=== PATIENT | female | born 1985 | race Caucasian/White ===

== ENCOUNTER 2024-02-13 20:10 | Emergency (ER) | payer OTHER, SELFPAY ==
--- NOTE | ~2024-02-13 | XR_ITS ---
EXAMINATION: XR CHEST CLINICAL INFORMATION: Fever. COMPARISON: None available. TECHNIQUE: Frontal view of the chest was obtained. FINDINGS: Normal appearance of the cardiomediastinal silhouette. Diffuse interstitial thickening. No dense consolidation. No pleural effusion or pneumothorax. No acute osseous findings. XR/XR chest 1V IMPRESSION: Diffuse interstitial thickening is nonspecific and could be associated with asthma, bronchitis, reactive airways disease or atypical infections.
[2024-02-13 20:29] VITALS: BP 112/70; PULSE 86; O2SAT 94
[2024-02-13 20:32] VITALS: BP 104/64; PULSE 92; RESP 18; TEMP 38.9; O2SAT 94; BMI 24.3
[2024-02-13] MEDS: cefTRIAXone sodium 1 GM in 0.9 % Sodium Chloride 50 ML IV (20:59)
[2024-02-13] MEDS: 0.9 % Sodium Chloride 1,000 ML 999 ML IV ×2 (20:59)
[2024-02-13 21:00] LABS: MANUAL DIFF FLAG NO
[2024-02-13] MEDS: Ibuprofen 600 MG TABLET PO (21:00)
--- NOTE | 2024-02-13 21:01 | PC.NURSE ---
20gIVs placed in the forearms bilaterally - labs obtained/sent to lab. access' wrapped for securement d/t pt being diaphoretic. IVF/medication administered per provider order. effectiveness pending.
[2024-02-13 21:02] LABS: Basophils Percent Auto 0.3 % (0-2); Eosinophils Percent Auto 0.1 % (0-4); Hematocrit 32.4 % (37.0-47.0); Hemoglobin 10.8 g/dl (12.0-16.0); Imm Gran Abs Auto 0.05 X10*3/uL (0.00-0.03); Imm Gran Pct Auto 0.5 % (0.0-0.4); Lymphocytes Absolute Auto 0.8 X10*3/uL (1.2-4.9); Lymphocytes Percent Auto 7.8 % (20-40); Mean Corpuscular HGB Conc 33.3 g/dl (31.0-35.0); Mean Corpuscular Hemoglobin 29.2 pg (27.0-33.0); Mean Corpuscular Volume 87.6 fL (80.0-98.0); Mean Platelet Volume 9.4 fL (9.4-12.3); Monocytes Absolute Auto 0.5 X10*3/uL (0.1-1.2); Monocytes Percent Auto 4.8 % (2-11); Neutrophils Percent Auto 86.5 % (45-73); Platelet Count 219 X10*3/uL (160-400); Red Cell Distribution Width 13.3 % (11.0-16.0); White Blood Count 10.4 X10*3/uL (4.8-10.8)
[2024-02-13 21:03] LABS: Appearance Urine Clear; Color Urine Yellow; Glucose Urine UA Negative (Negative); Leukocyte Esterase Urine Small (1+) (Negative); Nitrite Urine Negative (Negative); Specific Gravity - Urine <= 1.005 (1.005-1.025); UMIC TRIGGER UACC YES; Urine Blood Negative (Negative); Urine Ketones Negative (Negative); Urine Protein Negative (Neg-Trace)
--- NOTE | 2024-02-13 21:15 | ED_ITS ---
HPI - Fever General Chief Complaint: Fever Stated Complaint: FEVER SECTION 21 Time Seen by Provider: 02/13/24 21:04 Source: patient Mode of arrival: EMS Limitations: no limitations History of Present Illness ED Provider: JHONNY NELSON Narrative: 38 yo female who states she last used IVDA 2.5 weeks ago, on methadone currently at [facility] for past 5 days on S12. She c/o fever, headaches, body aches, fatigue, diffuse back pain, pain on urination x 24 hours. She also has had significant foul smelling vaginal discharge that was present prior to her admission at [facility] she denies abdominal pain and states she is not sexually active. She states she has never had a fever like this but notes the discharge has been present for over a week. She was given tylenol ED TEACHER elicited complaint: fever and malaise Onset (ago): hour(s) (24) Context: sick contacts and other (last used IVDA 2.5 weeks ago) Exacerbating factors: nothing Relieving factors: acetaminophen Associated symptoms: chills, headache, nausea and confusion Treatments prior to arrival fever: acetaminophen Related Data Allergies Allergy/AdvReac Type Severity Reaction Status Date / Time No Known Allergies Allergy Verified 02/13/24 20:35 Review of Systems 2 Review of Systems: Constitutional : positive Fever, positive Chills, positive fatigue, positive Malaise ENT/Mouth : no sore throat, positive runny nose Eyes: No Discharge Cardiovascular : No Chest Pain, No SOB Respiratory : pos Cough, No Sputum Gastrointestinal : pos Nausea, No Vomiting, No Diarrhea Genitourinary : pos Dysuria, No Urinary Frequency, pos vaginal discharge Musculoskeletal : positive Myalgia Skin : No rash Neuro : pos Headache All other systems reviewed and are negative [facility] Past Medical History Attestation statement: The following information was validated with the patient. Source: old records reviewed Medical History Opiate abuse, continuous Depression Social History Social History (Updated 02/13/24 @ 21:26 by Zahraa Barrera DO) Patient Tobacco Use Status: Never used Tobacco Physical Exam 2 Vital Signs: Vital Signs: Last Vital Signs Temp 100.1 F 02/13/24 21:23 Pulse 85 02/13/24 21:23 Resp 18 02/13/24 21:23 BP 99/65 02/13/24 21:23 Pulse Ox 98 02/13/24 21:23 O2 Del Method Room Air 02/13/24 21:23 BMI result Body Mass Index 24.3 Appearance: Appears slightly sedated. Oriented X3. No acute distress. Eyes: Pupils equal, round and reactive to light. ENT: Pharynx normal. Neck: Normal inspection. Neck supple. CVS: Normal heart rate and rhythm. Pulses normal. Respiratory: No respiratory distress. Breath sounds normal. Abdomen: Soft and non-tender. Skin: Skin warm and dry. Normal skin color. Normal skin turgor. Extremities: No lower extremity edema. No calf ttp Neuro: Oriented X 3. No motor deficit. No sensory deficit. Course Course Course Narrative: signed out Dr. Olivo pending work up Medications Administered Generic Name Dose Route Start Last Admin Trade Name Freq PRN Reason Stop Dose Admin Sodium Chloride 1,000 mls @ 999 mls/hr 02/13/24 20:41 02/13/24 20:59 Ns IV 02/13/24 21:41 999 mls/hr .Q1H1M ONE Administration Sodium Chloride 1,000 mls @ 999 mls/hr 02/13/24 20:41 02/13/24 20:59 Ns IV 02/13/24 21:41 999 mls/hr .Q1H1M ONE Administration Discontinued Medications Generic Name Dose Route Start Last Admin Trade Name Freq PRN Reason Stop Dose Admin Ceftriaxone Sodium 1 gm/ 50 mls @ 100 mls/hr 02/13/24 20:41 02/13/24 20:59 Sodium Chloride IV 02/13/24 21:10 100 mls/hr ONCE ONE Administration Ibuprofen 600 mg 02/13/24 20:41 02/13/24 21:00 Ibuprofen 600 Mg Tablet PO 02/13/24 20:42 600 mg ONCE ONE Administration Medical Decision Making Medical Decision Making MDM Narrative: 38 yo female who states she last used IVDA 2.5 weeks ago, on methadone currently at [facility] for past 5 days on S12 here with fevers, cough, headaches, myalgias diffuse, dysuria for 24 hours but then vaginal discharge x 1 week that does not seem to be related as she does not have abdominal pain. At this time labs, cultures, CXR, viral panel, strep swab, BV/trich, CTNG and start her on empiric IVF and ceftriaxone. Has not used IVDA in 2.5 weeks and no localized back pain doubt epidural abscess - endocarditis lower on list. Differential Diagnosis Differential Diagnoses: The differential diagnosis associated with the presentation includes viral syndrome, COVID, UTI, PID less likely has no pain, last used IVDA 2.5 weeks ago has diffuse pain not localized pain in back so epidural abscess seems less likely endocarditis but again more likely to be viral - cultures sent off Admission/Observation Consideration of admission/observation: Escalation of care including admission/observation considered Lab Data [facility] Lab Attestation statement: I reviewed the patient's lab results. 02/13/24 20:53 02/13/24 20:54 Labs: Lab Results 02/13/24 02/13/24 Range/Units 20:53 20:54 WBC 10.4 (4.8-10.8) X10*3/uL RBC 3.70 L (4.20-5.50) X10*6/uL Hgb 10.8 L (12.0-16.0) g/dl Hct 32.4 L (37.0-47.0) % MCV 87.6 (80.0-98.0) fL MCH 29.2 (27.0-33.0) pg MCHC 33.3 (31.0-35.0) g/dl RDW 13.3 (11.0-16.0) % Plt Count 219 (160-400) X10*3/uL MPV 9.4 (9.4-12.3) fL Immature Gran % (Auto) 0.5 H (0.0-0.4) % Neut % (Auto) 86.5 H (45-73) % Lymph % (Auto) 7.8 L (20-40) % [place] % (Auto) 4.8 (2-11) % Eos % (Auto) 0.1 (0-4) % Baso % (Auto) 0.3 (0-2) % Lymph # (Auto) 0.8 L (1.2-4.9) X10*3/uL [place] # (Auto) 0.5 (0.1-1.2) X10*3/uL Eos # (Auto) 0.0 (0.0-0.4) X10*3/uL Baso # (Auto) 0.0 (0.0-0.2) X10*3/uL Abs Immat Gran (auto) 0.05 H (0.00-0.03) X10*3/uL Absolute Neuts (auto) 9.0 H (2.0-8.3) x10*3/uL Absolute Nucleated RBC 0.000 (0.0-0.012) X10*3/uL Nucleated RBC % (auto) 0.0 (0.0-0.2) /100WBC Sodium 135 (135-145) mmol/L Potassium 3.6 (3.3-5.1) mmol/L Chloride 98 (96-108) mmol/L Carbon Dioxide 29 (22-29) mmol/L Anion Gap 12 (12-20) BUN 7 L (9-16) mg/dL Creatinine 0.86 (0.5-1.4) mg/dL Estim Creat Clear Calc 84.5 Estimated GFR > 60 Random Glucose 150 H (60-115) mg/dL Lactic Acid 1.0 (0.5-2.0) mmol/L Calcium 8.6 (8.4-10.2) mg/dL Magnesium 1.7 (1.6-2.6) mg/dL Total Bilirubin 0.4 (0.0-1.0) mg/dL Direct Bilirubin 0.1 (0.0-0.5) mg/dL AST 51 H (5-31) U/L ALT 45 H (0-31) U/L Alkaline Phosphatase 75 (39-117) U/L Total Protein 7.8 (6.5-8.0) g/dL Albumin 3.7 (3.5-5.0) g/dL Urine Color Yellow Urine Appearance Clear Urine pH 8.0 (5.0-9.0) Ur Specific [place] <= 1.005 (1.005-1.025) Urine Protein Negative (Neg-Trace) mg/dL Urine Glucose (UA) Negative (Negative) mg/dL Urine Ketones Negative (Negative) mg/dL Urine Blood Negative (Negative) Urine Nitrite Negative (Negative) Ur Leukocyte Esterase Small (1+) H (Negative) Urine RBC 0-2 (0-2) /HPF Urine WBC 0-5 (0-5) /HPF Ur Squamous Epith Cells 0-2 (0-2) /HPF Urine Bacteria None Seen (None Seen) Hyaline Casts 0-2 (0-2) /LPF Independent Interpretation I performed an independent interpretation of an: Plain X-Ray Independent Historian Clinical information obtained from an independent historian. History obtained from or confirmed by: EMS External Record Review External record reviewed: Outpatient record Discharge Plan Discharge Clinical Impression: Fever Patient Disposition: Still a Patient Print Language: Japanese
--- NOTE | 2024-02-13 21:18 | MHC.EDTECH ---
Belongings in C1
[2024-02-13 21:19] LABS: Bacteria Urine None Seen (None Seen); Hyaline Casts Urine 0-2 /LPF (0-2); RBC Urine 0-2 /HPF (0-2); Squamous Epithelial Cell Urine 0-2 /HPF (0-2); UACC Culture Trigger YES; WBC Urine 0-5 /HPF (0-5)
[2024-02-13 21:20] LABS: Alanine Aminotransferase 45 U/L (0-31); Albumin Level 3.7 g/dL (3.5-5.0); Alkaline Phosphatase 75 U/L (39-117); Anion Gap 12 (12-20); Aspartate Amino Transferase 51 U/L (5-31); Bilirubin Direct 0.1 mg/dL (0.0-0.5); Bilirubin Total 0.4 mg/dL (0.0-1.0); Blood Urea Nitrogen 7 mg/dL (9-16); Calcium 8.6 mg/dL (8.4-10.2); Carbon Dioxide 29 mmol/L (22-29); Chloride 98 mmol/L (96-108); Creatinine Clr Calc Pharmacy 84.5; Estimated Glomerular Filt Rate > 60; Glucose Random 150 mg/dL (60-115); Magnesium 1.7 mg/dL (1.6-2.6); Potassium 3.6 mmol/L (3.3-5.1); Sodium 135 mmol/L (135-145); Total Protein 7.8 g/dL (6.5-8.0)
[2024-02-13 21:23] VITALS: BP 99/65; PULSE 85; RESP 18; TEMP 37.8; O2SAT 98
[2024-02-13 21:35] LABS: HCG Quantitative < 2 mIU/mL
[2024-02-13 21:42] LABS: Influenza A PCR NEGATIVE (Negative); Influenza B PCR NEGATIVE (Negative); Resp Syncy Virus RNA Qual PCR NEGATIVE (Negative); SARS COV2 PCR INHOUSE NEGATIVE (Negative)
--- NOTE | 2024-02-13 21:43 | PC.NURSE ---
swabs obtained by pt/sent to lab by tech.
[2024-02-13 21:57] VITALS: BP 100/61; PULSE 84; RESP 18; TEMP 37.4; O2SAT 96
--- NOTE | 2024-02-13 21:58 | PC.NURSE ---
when changing pt over - pt noted redness/discharge coming from left nipple. skin red/hot to the touch on left breast. tender to touch. pt reports 10/10 pain. states she was unaware of affected area until today. provider notified/aware. affected area outlined with skin marker. will reassess.
[2024-02-13 22:03] LABS: C Reactive Protein 2.69 mg/dL (< or = 0.50)
[2024-02-13 22:12] LABS: IDNOW Serial# 6674DD1D; Strep A Nucleic Acid Positive (Negative)
[2024-02-13 22:29] VITALS: BP 98/53; PULSE 77; RESP 20; TEMP 37.2; O2SAT 95
[2024-02-13 22:39] LABS: Erythrocyte Sedimentation Rate 38 MM/HR (0-20)
[2024-02-13] MEDS: Doxycycline Monohydrate 100 MG CAPSULE PO (23:47)
[2024-02-13] MEDS: Amoxicillin/Potassium Clav 875 MG TABLET PO (23:48)
--- NOTE | 2024-02-13 23:51 | PC.NURSE ---
Took over care from TOMI Boggs, medicated per sep . pt eating and resting at this time.
[2024-02-14] MEDS: Lactated Ringers 1,000 ML 999 ML IV
--- NOTE | 2024-02-14 00:04 | PC.NURSE ---
Addendum entered by Kelly Gaspar 02/14/24 00:04: fluids hung per provider Original Note: Fluids hung by provider
--- NOTE | 2024-02-14 00:05 | PC.NURSE ---
pt is lethargic at time able to awaken, pt is able to answer question appropriately, pt awaiting to be transferred by to [facility]
[2024-02-14 01:24] VITALS: BP 94/63; PULSE 74; RESP 16; TEMP 37; O2SAT 98
--- NOTE | 2024-02-14 01:34 | PC.NURSE ---
fluids stopped, Iv removed, report given to Janette barth Rn, Pt transported by [facility]
[2024-02-14 01:35] VITALS: BP 94/63; PULSE 74; RESP 16; TEMP 37; O2SAT 98
[2024-02-14 11:34] LABS: Bacterial Vaginosis PCR POSITIVE (Negative); Candida Group PCR NOT DETECTED (Not Detect); Candida glab krusei PCR NOT DETECTED (Not Detect); Trichomonas vaginalis PCR DETECTED (Not Detect)
[2024-02-14 11:41] LABS: CT PCR NOT DETECTED (Not Detect.); NG PCR NOT DETECTED (Not Detect.)
== END 2024-02-14 01:36 ==
PROVIDERS: Emergency Medicine; Emergency Provider Emergency Medicine
DX: R50.9 Fever, unspecified (principal); M79.10 Myalgia, unspecified site; N61.0 Mastitis without abscess; R51.9 Headache, unspecified; M54.50 Low back pain, unspecified; R41.0 Disorientation, unspecified; R11.0 Nausea; F11.10 Opioid abuse, uncomplicated; Z03.818 Encounter for observation for suspected exposure to other biological agents ruled out; Z79.899 Other long term (current) drug therapy
CPT/HCPCS: 0241U; 0352U; 36415; 71045; 80048; 80076; 81001; 81003; 83605; 83735; 84702; 85025; 85652; 86140; 87040; 87086; 87491; 87591; 87651; 96361; 96365; 99285; J0696; J7120